=== PATIENT | female | born 1975 ===

== ENCOUNTER → 2017-12-10 12:35 | Outpatient (CLI) | payer OTHER | END | disposition home or self-care (01) | LOC: RAD 12:35 → ADM 12-11 13:00 | DX: R05 Cough (principal) ==

== ENCOUNTER 2018-03-11 15:06 | Outpatient (CLI) | payer OTHER | END 2018-03-11 15:07 | disposition home or self-care (01) | LOC: LAB 15:06 | DX: C53.9 Malignant neoplasm of cervix uteri, unspecified (principal); M54.9 Dorsalgia, unspecified; R42 Dizziness and giddiness; R53.1 Weakness ==

== ENCOUNTER 2018-03-12 07:15 | Outpatient (CLI) | payer OTHER | END 2018-03-12 15:07 | disposition home or self-care (01) | LOC: TOM 07:15 | DX: M54.9 Dorsalgia, unspecified (principal); C53.9 Malignant neoplasm of cervix uteri, unspecified ==